=== PATIENT | male | born 1945 | race Caucasian/White ===

== ENCOUNTER 2023-12-25 20:56 | Emergency (ER) | payer MEDICARE ==
[~2023-12-25] VITALS: Ht 180.3 cm; Wt 109.8 kg
[~2023-12-25 20:56] MED LIST: AMLODIPINE BESY10 MG PO; ASPIRIN CHEW81 MG PO; LOSARTAN POTAS100 MG PO; LOZOL 2.5MG2.5 MG PO; METOPROLOL SUCC50 MG PO; PLAVIX75 MG PO; SIMVASTATIN20 MG PO; ZYLOPRIM100 MG PO
[2023-12-25] MEDS ORDERED: SODIUM CHLORIDE FLUSH 10 ML SYR IV PRN (21:15)
[2023-12-25] MEDS: ASPIRIN 81 MG CHEW TAB PO ONE (21:24)
[2023-12-25 21:26] LABS: BASOPHILS % 0.5 % (0.0-1.0); EOSINOPHILS # (AUTO) 0.1 (0.0-0.4); EOSINOPHILS % 1.2 % (0.0-6.0); HEMATOCRIT 45.8 % (38.2-49.6); HEMOGLOBIN 15.4 g/dL (14.0-18.0); LYMPHOCYTES # (AUTO) 1.2 (1.0-3.2); MEAN CORPUSCULAR HEMOGLOBIN 29.8 pg (28-32); MEAN CORPUSCULAR HGB CONC 33.6 g/dL (31-35); MEAN CORPUSCULAR VOLUME 88.8 fL (81-99); MONOCYTES # (AUTO) 0.6 (0.2-0.8); MONOCYTES % 9.1 % (4.4-11.3); NEUTROPHILS # (AUTO) 4.5 (2.1-6.9); NEUTROPHILS % 69.4 % (38.7-80.0); PLATELET COUNT 132 x10e3/uL (140-360); RED BLOOD COUNT 5.16 x10e6/uL (4.3-5.7); RED CELL DISTRIBUTION WIDTH 13.9 % (11.7-14.4); WHITE BLOOD COUNT 6.51 x10e3/uL (4.8-10.8)
[2023-12-25 21:44] LABS: ALANINE AMINOTRANSFERASE 11 IU/L (0-55); ALBUMIN 4.2 g/dL (3.5-5.0); ALBUMIN/GLOBULIN RATIO 1.4 (0.8-2.0); ALKALINE PHOSPHATASE 66 IU/L (40-150); ANION GAP 15.9 mmol/L (8-16); BILIRUBIN,TOTAL 1.4 mg/dL (0.2-1.2); BLOOD UREA NITROGEN 20 mg/dL (7-26); BUN/CREATININE RATIO 16 (6-25); CALCIUM 9.3 mg/dL (8.4-10.2); CARBON DIOXIDE 20 mmol/L (22-29); CHLORIDE 105 mmol/L (98-107); CREATININE, SERUM 1.24 mg/dL (0.72-1.25); EST GLOMERULAR FILTRATION RATE 60 ML/MIN (>=60); GLUCOSE 111 mg/dL (74-118); POTASSIUM 3.9 mmol/L (3.5-5.1); SODIUM 137 mmol/L (136-145); TOTAL PROTEIN 7.1 g/dL (6.5-8.1)
[2023-12-25 21:59] LABS: TROPONIN I < 0.001 ng/mL (0-0.300)
[2023-12-25 23:34] VITALS: PULSE 56; RESP 16; TEMP 98.1
[2023-12-25] MEDS ORDERED: CLONIDINE HCL0.1 MG PO (23:42)
[2023-12-25 23:48] VITALS: BP 183/98; PULSE 56; RESP 16; TEMP 98.1; O2SAT 95
== END 2023-12-25 23:50 | disposition home or self-care (01) ==
LOC: ER 21:02
DX: R00.2 Palpitations (principal); I10 Essential (primary) hypertension; Z94.0 Kidney transplant status; Z88.5 Allergy status to narcotic agent; Z79.82 Long term (current) use of aspirin
CPT/HCPCS: 36415; 71045; 80053; 83880; 84484; 85025; 93005; 94760; 99284